=== PATIENT | male | born 1950 | race Caucasian/White ===

== ENCOUNTER 2019-01-13 12:09 | Outpatient (CLI) | payer MEDICARE ==
--- NOTE | 2019-01-13 13:43 | RAD ---
EXAM: Chest Two Views 01/13/2019 1:40 PM HISTORY: Preoperative chest radiograph COMPARISON: None. FINDINGS: Heart: There is mild cardiomegaly Pulmonary vessels: Normal. Costophrenic angles: Clear. Lungs: No confluent pneumonia, overt edema, pleural effusion, or other acute process. Pneumothorax: None. Osseous structures:No acute osseous abnormality is evident. There is multilevel thoracic spondylosis. Additional findings: None. IMPRESSION: No acute cardiopulmonary abnormality. Mild cardiomegaly without evidence of cardiac decompensation.
[2019-01-13 14:05] LABS: #Eosinphils 0.3 thou/uL (0.0-0.7); #Lymphocytes 1.9 thou/uL (1.20-3.40); #Monocytes 0.7 thou/uL (0.11-0.59); #Neutrophils 4.3 thou/uL (1.40-6.50); %Basophils 0.6 % (0.0-1.0); %Lymphocytes 26.3 % (21.0-51.0); %Monocytes 9.6 % (0.0-10.0); %Neutrophils 59.5 % (42.0-75.0); Hemoglobin 15.4 g/dL (14.0-18.0); Mean Corpuscular HGB CONC 33.5 g/dL (32.0-36.0); Mean Corpuscular Hemoglobin 31.6 pg (27.0-31.0); Mean Corpuscular Volume 94.4 fL (78.0-98.0); Mean Platelet Volume 7.9 fL (7.4-10.4); Platelet Count 191 thou/uL (130-400); RBC Distribution Width 11.7 % (11.5-14.5); Red Blood Cell (RBC) Count 4.88 mill/uL (4.70-6.10); White Blood Cell (WBC) Count 7.2 thou/uL (4.8-10.8)
[2019-01-13 14:24] LABS: Anion Gap 13 mmol/L (10-20); BUN (Urea Nitrogen) 18 mg/dL (8.4-25.7); Calc. Creatinine Clearance 0 mL/min (70-130); Calcium 9.9 mg/dL (7.8-10.44); Carbon Dioxide 26 mmol/L (23-31); Chloride 103 mmol/L (98-107); Estimated GFR-MDRD 80; Glucose 108 mg/dL (80-115); Potassium 4.1 mmol/L (3.5-5.1); Sodium 138 mmol/L (136-145)
== END 2019-01-13 12:10 | disposition home or self-care (01) ==
LOC: LABBT 12:09
PROVIDERS: ATTEND Thoracic Surgery (Cardiothoracic Vascular Surgery)
DX: Z01.818 Encounter for other preprocedural examination (principal); I73.9 Peripheral vascular disease, unspecified; I51.7 Cardiomegaly
CPT/HCPCS: 71046; 80048; 85025; 93005; 93010

== ENCOUNTER 2019-01-13 13:30 | Inpatient (IN) | payer MEDICARE ==
[2019-01-13 12:30] VITALS: BMI 32.3
[2019-01-14] MEDS ORDERED: Fentanyl 250 MCG/5 ML VIAL ONE (06:29)
[2019-01-14] MEDS ORDERED: Midazolam HCl 2 mg/2 ml Vial ONE (06:29)
[2019-01-14] MEDS ORDERED: Heparin 5,000 UNITS/ML VIAL ONE (06:33)
[2019-01-14] MEDS ORDERED: Bupivacaine HCl 0.5%/Epinephrine 1:200,000/PF 30 ml Vial ONE (06:33)
[2019-01-14] MEDS ORDERED: Protamine Sulfate 50 MG/5 ML VIAL ONE (06:33)
[2019-01-14] MEDS ORDERED: Ondansetron HCl/PF 4 MG/2 ML Vial IVP PRN ×2 (06:50→10:40)
[2019-01-14] MEDS ORDERED: Promethazine HCl 25 MG/ML VIAL SLOW IVP PRN ×2 (06:50→10:40)
[2019-01-14] MEDS ORDERED: Promethazine HCl 25 MG/ML VIAL IM PRN ×3 (06:50→13:17)
[2019-01-14] MEDS ORDERED: PHENYLEPHRINE-NS 100 MCG/ML 10 ML SYRINGE ONE ×2 (09:15→16:40)
[2019-01-14] MEDS ORDERED: Phenylephrine HCL 10 MG/ML VIAL ONE (09:18)
[2019-01-14] MEDS ORDERED: Meperidine HCl/PF 25 MG/ML VIAL SLOW IVP PRN (10:40)
[2019-01-14] MEDS ORDERED: HYDROmorphone 2 MG/ML VIAL SLOW IVP PRN (10:40)
[2019-01-14] MEDS ORDERED: Morphine Sulfate 2 MG/ML SYRINGE SLOW IVP PRN (10:40)
[2019-01-14] MEDS ORDERED: PACU-Morphine 4MG/ML VIAL SLOW IVP PRN (10:40)
[2019-01-14] MEDS ORDERED: HYDROcodone/Acetaminophen 5/325 mg Tablet PO PRN ×2 (13:17)
[2019-01-14] MEDS ORDERED: Acetaminophen 325 MG TAB PO PRN (13:17)
[2019-01-14] MEDS ORDERED: Promethazine HCl 25 MG/ML VIAL PR PRN (13:17)
[2019-01-14] MEDS ORDERED: Ondansetron PF 4 MG/2 ML Vial IVP PRN (13:17)
[2019-01-14] MEDS ORDERED: Fentanyl 100 MCG/2 ML VIAL SLOW IVP PRN ×2 (13:17)
[2019-01-14] MEDS ORDERED: CEFAZOLIN 2 GM in Premix Bag 1 BAG IVPB SCH (14:00)
[2019-01-14] MEDS: D5 1/2 NS w/20 mEq KCL 1,000 ML IV SCH (15:01)
[2019-01-14] MEDS ORDERED: Ondansetron PF 4 MG/2 ML Vial ONE (16:40)
[2019-01-14] MEDS ORDERED: Glycopyrrolate 0.2 MG/ML 5 ML SYRINGE ONE (16:40)
[2019-01-14] MEDS ORDERED: Heparin 10,000 UNITS/ 10 ML VIAL ONE (16:40)
[2019-01-14] MEDS ORDERED: Rocuronium Bromide 10 MG/ML (10ML VIAL) ONE (16:40)
[2019-01-14] MEDS ORDERED: Lidocaine 1% PF 5 ML VIAL ONE (16:40)
[2019-01-14] MEDS ORDERED: Vecuronium 10 MG VIAL ONE (16:40)
[2019-01-14] MEDS ORDERED: ePHEDrine 50 MG/ML VIAL ONE (16:40)
[2019-01-14] MEDS ORDERED: PROPOFOL 200 MG/20 ML VIAL ONE (16:40)
[2019-01-14] MEDS ORDERED: Dexamethasone 20 MG/5 ML VIAL ONE (16:40)
--- NOTE | 2019-01-14 16:45 | OP ---
DATE OF PROCEDURE: 01/14/2019 PREOPERATIVE DIAGNOSIS: Peripheral vascular disease with right leg severe lifestyle-limiting claudication. POSTOPERATIVE DIAGNOSIS: Peripheral vascular disease with right leg severe lifestyle-limiting claudication. PROCEDURE PERFORMED: Right femoral to tibioperoneal trunk bypass utilizing reverse saphenous vein taken endoscopically from the right leg. ANESTHESIA: General endotracheal. ESTIMATED BLOOD LOSS: 150. DRAINS: None. SPECIMENS: None. DESCRIPTION OF PROCEDURE: After consent was obtained, the patient was brought to the operating room and placed in supine position on the operating room table. Appropriate central line was placed, and general endotracheal anesthesia was induced. Right leg was prepped and draped in the usual sterile fashion. The greater saphenous vein had been interrogated preoperatively and marked. A skin incision was made just proximal to the knee over the greater saphenous vein. Saphenous vein was then harvested endoscopically from groin down to the lower calf. A skin incision was made over the common femoral artery. The saphenous vein was located and divided at the fossa ovalis. Saphenous vein was then retracted from the thigh into the knee incision and clamped with a bulldog clamp. The common femoral, superficial femoral, and profunda femoris arteries were carefully dissected free. Common femoral had circumferential calcium as far up under the inguinal ligament as I could feel. There was no area to clamp. There was an area on the superficial femoral just distal to the profunda that was soft and we elected to use this as our inflow site. There was a good palpable pulse at this area. A skin incision was then made over the below-knee popliteal artery as that was our plan for outflow. The gastroc fascia was then opened and the popliteal artery exposed. The popliteal artery was heavily calcified. This was followed distally down past the anterior tibial artery takeoff. The tibioperoneal trunk had a short area of soft pliable artery and we elected to use this as our outflow. The distal greater saphenous vein was then divided and the vein was removed. Vein branches were tied. The vein was of good quality and we elected to reverse it to use for bypass. Vein was marked. Vein was then passed through the previous tunnel. The patient was given 7500 units total of heparin. The superficial femoral at the bifurcation and distal superficial femoral arteries were then clamped. Incision was made on the superficial femoral artery and a running 5-0 Prolene anastomosis created between the saphenous vein and the superficial femoral artery. On release of the clamps, there was excellent flow in the vein graft that was pulsatile. The distal anastomosis was then created between saphenous vein and tibioperoneal trunk with running 6-0 Prolene suture. On release of the clamps, the flow was palpable through the graft. There was good triphasic Doppler signal, which abated with clamping the graft. A 50 mg of protamine was given. The wounds were irrigated and closed with a deep layer of 2-0 Vicryl and skin clips. At completion, there was a good Doppler signal in the posterior tibial artery. The patient was awakened, extubated, and transferred to the recovery room in stable condition. Needle, sponge, and instrument counts were all reported as correct at the end of the procedure. Job ID: [id number]
[2019-01-14] MEDS: Atorvastatin Calcium 40 MG TAB PO SCH (20:04)
[2019-01-15] MEDS: CEFAZOLIN 2 GM in Premix Bag 1 BAG IVPB SCH ×2 (00:06→09:58)
[2019-01-15] MEDS: D5 1/2 NS w/20 mEq KCL 1,000 ML IV SCH (00:07)
[2019-01-15] MEDS ORDERED: Amlodipine 10 MG TAB PO SCH (09:00)
[2019-01-15] MEDS ORDERED: Citalopram 20 MG TAB PO SCH (09:00)
[2019-01-15] MEDS ORDERED: Aspirin 325 mg Enteric Coated Tablet PO SCH ×2 (09:00)
[2019-01-15] MEDS ORDERED: Non-Formulary Item 1 EACH (Hydrochlorothiazide [Hydrochlorothiazide] 1 TAB) PO SCH (09:00)
[2019-01-15] MEDS ORDERED: Non-Formulary Item 1 EACH (Multivitamin [Multivitamins] 1 TAB) PO SCH (09:00)
[2019-01-15] MEDS ORDERED: Ezetimibe 10 MG TAB PO SCH (09:00)
[2019-01-15] MEDS ORDERED: FOLIC ACID 400 MCG PO SCH (09:00)
[2019-01-15] MEDS ORDERED: Clopidogrel Bisulfate 75 MG TAB PO SCH (09:00)
[2019-01-15] MEDS ORDERED: Lisinopril 20 MG TAB PO SCH (09:00)
[2019-01-15] MEDS ORDERED: ATORVASTATIN CALCIUM PO SCH (09:00)
[2019-01-15] MEDS: Atenolol 50 MG TAB PO SCH (09:44)
[2019-01-15] MEDS: Ezetimibe 10 MG TAB PO SCH (09:52)
[2019-01-15] MEDS: Citalopram 20 MG TAB PO SCH (09:52)
[2019-01-15] MEDS: Multivit, Therapeutic 1 TAB PO SCH (09:52)
[2019-01-15] MEDS: Aspirin 81 mg Enteric Coated Tablet PO SCH (09:53)
[2019-01-15] MEDS: Clopidogrel Bisulfate 75 MG TAB PO SCH (09:53)
[2019-01-15] MEDS: Folic Acid 1 MG TAB PO SCH (09:53)
[2019-01-15] MEDS: Amlodipine 10 MG TAB PO SCH (09:53)
[2019-01-15] MEDS: Lisinopril 20 MG TAB PO SCH (15:05)
[2019-01-15] MEDS: Hydrochlorothiazide 25 MG TAB PO SCH (15:05)
[2019-01-15] MEDS: Atorvastatin Calcium 40 MG TAB PO SCH (20:44)
[2019-01-16] MEDS: D5 1/2 NS w/20 mEq KCL 1,000 ML IV SCH ×2 (03:55→05:54)
[2019-01-16] MEDS: Ezetimibe 10 MG TAB PO SCH (08:56)
[2019-01-16] MEDS: Citalopram 20 MG TAB PO SCH (08:57)
[2019-01-16] MEDS: Clopidogrel Bisulfate 75 MG TAB PO SCH (08:57)
[2019-01-16] MEDS: Hydrochlorothiazide 25 MG TAB PO SCH (08:58)
[2019-01-16] MEDS: Multivit, Therapeutic 1 TAB PO SCH (08:59)
[2019-01-16] MEDS: Folic Acid 1 MG TAB PO SCH (09:00)
[2019-01-16] MEDS: Aspirin 81 mg Enteric Coated Tablet PO SCH (09:00)
[2019-01-16] MEDS: Atenolol 50 MG TAB PO SCH (09:01)
[2019-01-16] MEDS: Amlodipine 10 MG TAB PO SCH (09:02)
[2019-01-16] MEDS: Lisinopril 20 MG TAB PO SCH (09:02)
[2019-01-16 11:53] VITALS: BP 117/71; TEMP 98.3
--- NOTE | 2019-01-17 01:47 | DIS ---
DATE OF ADMISSION: 01/14/2019 DATE OF DISCHARGE: 01/16/2019 DIAGNOSIS: Peripheral vascular disease. PROCEDURE: Right femoral to tibioperoneal trunk bypass utilizing reversed greater saphenous vein. DESCRIPTION OF HOSPITAL STAY: Mr. Harry is a 68-year-old gentleman, who underwent the above procedure for severe lifestyle limiting claudication. He has done well postoperatively. His claudication has resolved. He is ambulatory, tolerating regular diet, having good bowel and bladder function. Incision was clean and dry without evidence of infection. DISCHARGE INSTRUCTIONS: Included for him to walk as much as possible. He needs to elevate his leg at home between walking cycles. He is to shower daily, but no baths, hot tub, or swimming pool submersion. DISCHARGE MEDICATIONS: Unchanged. FOLLOWUP: Follow up with me in 2 weeks. Job ID: [id number]
== END 2019-01-16 13:10 | disposition home or self-care (01) | DRG 254 ==
LOC: SURG A 01-14 05:32 → SURG B 01-14 12:01
PROVIDERS: ADMIT Thoracic Surgery (Cardiothoracic Vascular Surgery); ATTEND Thoracic Surgery (Cardiothoracic Vascular Surgery)
PROC: 041K09L Bypass Right Femoral Artery to Popliteal Artery with Autologous Venous Tissue, Open Approach (ICD-10-PCS; principal; 2019-01-14)
PROC: 06BP4ZZ Excision of Right Saphenous Vein, Percutaneous Endoscopic Approach (ICD-10-PCS; 2019-01-14)
DX: I73.9 Peripheral vascular disease, unspecified (principal)
CPT/HCPCS: 71046; 80048; 85025; 86850; 86900; 86901; 93005; 93010; J0670; J0690; J1100; J1642; J1644; J2001; J2250; J2370; J2405; J2704; J2720; J3010; J3490

== ENCOUNTER 2019-10-27 08:36 | Outpatient (CLI) | payer MEDICARE ==
--- NOTE | 2019-10-27 10:04 | RAD ---
Chest 2 views HISTORY: Preop. COMPARISON: 01/13/2019. FINDINGS: Cardiac silhouette and pulmonary vasculature are unremarkable. Mediastinum is midline. No c onfluent airspace consolidation, pneumothorax, or pleural fluid. Degenerative changes of the thoracic spine are apparent on the lateral view. IMPRESSION: No active cardiopulmonary abnormalities are demonstrated.
[2019-10-27 10:17] LABS: Hemoglobin 15.6 g/dL (14.0-18.0); Mean Corpuscular HGB CONC 34.1 g/dL (32.0-36.0); Mean Corpuscular Hemoglobin 32.3 pg (27.0-31.0); Mean Corpuscular Volume 94.6 fL (78.0-98.0); Mean Platelet Volume 7.6 fL (7.4-10.4); Platelet Count 182 thou/uL (130-400); RBC Distribution Width 11.7 % (11.5-14.5); Red Blood Cell (RBC) Count 4.82 mill/uL (4.70-6.10); White Blood Cell (WBC) Count 7.1 thou/uL (4.8-10.8)
[2019-10-27 10:27] LABS: Anion Gap 13 mmol/L (10-20); BUN (Urea Nitrogen) 18 mg/dL (8.4-25.7); Calc. Creatinine Clearance 0 mL/min (70-130); Calcium 9.2 mg/dL (7.8-10.44); Carbon Dioxide 25 mmol/L (23-31); Chloride 106 mmol/L (98-107); Estimated GFR-MDRD 90; Glucose 122 mg/dL (83-110); Potassium 3.8 mmol/L (3.5-5.1); Sodium 140 mmol/L (136-145)
--- NOTE | 2019-10-27 15:21 | EKG ---
Test Reason : Blood Pressure : / mmHG Vent. Rate : 052 BPM Atrial Rate : 052 BPM P-R Int : 170 ms QRS Dur : 108 ms QT Int : 466 ms P-R-T Axes : 019 -26 -10 degrees QTc Int : 433 ms Sinus bradycardia Nonspecific T wave abnormality Cannot exclude Anterior infarct , age undetermined Voltage criteria for left ventricular hypertrophy Abnormal ECG Confirmed by JUANCARLOS HO ([id number]) on 10/27/2019 3:21:22 PM Referred By: PEYTON Confirmed By:JUANCARLOS HO
== END 2019-10-27 08:37 | disposition home or self-care (01) ==
LOC: LABBT 08:36
PROVIDERS: ATTEND Thoracic Surgery (Cardiothoracic Vascular Surgery)
DX: Z01.818 Encounter for other preprocedural examination (principal); I73.9 Peripheral vascular disease, unspecified
CPT/HCPCS: 71046; 80048; 85027; 93005; 93010

== ENCOUNTER 2019-10-27 10:15 | Inpatient (IN) | payer MEDICARE ==
[2019-10-29] MEDS ORDERED: Heparin 5,000 UNITS/ML VIAL ONE (06:31)
[2019-10-29] MEDS ORDERED: Protamine Sulfate 50 MG/5 ML VIAL ONE (06:31)
[2019-10-29] MEDS ORDERED: Fentanyl 250 MCG/5 ML VIAL ONE (06:57)
[2019-10-29] MEDS ORDERED: Midazolam HCl 2 mg/2 ml Vial ONE (07:14)
[2019-10-29] MEDS ORDERED: Sodium Chloride For Inhalation 0.9% 3 ML NEB ONE (10:43)
[2019-10-29] MEDS ORDERED: Ondansetron PF 4 MG/2 ML Vial IVP PRN (10:53)
[2019-10-29] MEDS ORDERED: Fentanyl 100 MCG/2 ML VIAL SLOW IVP PRN ×2 (10:53)
[2019-10-29] MEDS ORDERED: Promethazine HCl 25 MG/ML VIAL PR PRN (10:53)
[2019-10-29] MEDS ORDERED: Promethazine HCl 25 MG/ML VIAL IM PRN ×2 (10:53→13:37)
[2019-10-29] MEDS ORDERED: Acetaminophen 325 MG TAB PO PRN (10:53)
[2019-10-29] MEDS ORDERED: Vecuronium 10 MG VIAL ONE (11:38)
[2019-10-29] MEDS ORDERED: PHENYLEPHRINE-NS 100 MCG/ML 10 ML SYRINGE ONE (11:38)
[2019-10-29] MEDS ORDERED: Glycopyrrolate 0.2 MG/ML 5 ML SYRINGE ONE (11:38)
[2019-10-29] MEDS ORDERED: Ondansetron PF 4 MG/2 ML Vial ONE (11:38)
[2019-10-29] MEDS ORDERED: PROPOFOL 200 MG/20 ML VIAL ONE (11:38)
[2019-10-29] MEDS ORDERED: Lidocaine 1% PF 5 ML VIAL ONE (11:38)
[2019-10-29] MEDS ORDERED: EPHEDRINE 25 MG/5 ML SYRINGE ONE (11:38)
[2019-10-29] MEDS ORDERED: Fentanyl 100 MCG/2 ML VIAL ONE (11:53)
--- NOTE | 2019-10-29 12:03 | OP ---
DATE OF PROCEDURE: 10/29/2019 PREOPERATIVE DIAGNOSIS: Peripheral vascular disease. POSTOPERATIVE DIAGNOSIS: Peripheral vascular disease. PROCEDURES PERFORMED: 1. Left iliofemoral endarterectomy with patch angioplasty. 2. Left external iliac artery angiogram. ANESTHESIA: General endotracheal. TOTAL CONTRAST: 20. TOTAL FLUORO TIME: 48 seconds. ESTIMATED BLOOD LOSS: 200. DESCRIPTION OF PROCEDURE: After consent was obtained, the patient was brought to the operating room, placed supine on the operative table. Appropriate central line and monitors were placed and general endotracheal anesthesia was induced. The left groin was prepped and draped in usual sterile fashion. A skin incision was made over the common femoral artery. Common femoral external iliac under the inguinal ligament, superficial femoral, and profunda femoris arteries were carefully exposed. There was a soft spot anteriorly in the common femoral artery. This was accessed with the access needle and a [employer] guidewire passed to the abdominal aorta. A 6-Tamazight sheath was placed. A hand-injected arteriogram was then performed illuminating the aorta and iliac vasculature on the left. There was no intraluminal severe encroachment. In the common iliac artery, there was a large piece of calcium, but it was not occlusive. We elected to not treat any of these areas. The patient was given 7500 units of heparin. After 3 minutes, the external iliac, superficial femoral, and profunda femoris arteries were clamped. The sheath was removed. The sheath access point was used to extend an incision on the anterior wall of the common femoral artery up onto the external iliac artery. This was also brought down onto the orifice of the superficial femoral artery. The endarterectomy was performed with [employer] hemostats. The plaque was removed from the orifice of the profunda femoris artery. Medial fibers were debrided. Artery was flushed with heparinized saline. The bovine pericardial patch was sewn in place with running 5-0 Prolene suture. Prior to completion of the patch suture line, arteries were back bled and re-clamped. Suture line was completed and tied. Antegrade flows reestablished down the profunda and then, the superficial femoral artery. The protamine was administered. Hemostasis was ensured. Wounds were copiously irrigated. Closed in layers. Dermabond applied to skin. The patient was awakened and transferred to the recovery room in stable condition. Needle, sponge, and instrument counts were reported correct at the end of the procedure. Job ID: [id number]
[2019-10-29] MEDS ORDERED: Ondansetron HCl/PF 4 MG/2 ML Vial IVP PRN (13:37)
[2019-10-29] MEDS ORDERED: Promethazine HCl 25 MG/ML VIAL SLOW IVP PRN (13:37)
[2019-10-29] MEDS ORDERED: Sodium Chloride 0.9% 0 ML ONE (14:10)
[2019-10-29] MEDS: traMADol HCl 50 MG TAB PO PRN (16:34)
[2019-10-29] MEDS: D5 1/2 NS w/20 mEq KCL 1,000 ML IV SCH ×2 (16:36→23:08)
[2019-10-29 16:42] VITALS: BMI 31.8
[2019-10-29] MEDS: CEFAZOLIN 2 GM in Premix Bag 1 BAG IVPB SCH ×2 (17:22→23:33)
[2019-10-29] MEDS ORDERED: Atorvastatin Calcium 40 MG TAB PO SCH (21:00)
[2019-10-30] MEDS: CEFAZOLIN 2 GM in Premix Bag 1 BAG IVPB SCH (05:44)
[2019-10-30] MEDS ORDERED: Amlodipine 10 MG TAB PO SCH (09:00)
[2019-10-30] MEDS ORDERED: Aspirin 81 mg Enteric Coated Tablet PO SCH (09:00)
[2019-10-30] MEDS ORDERED: Citalopram 20 MG TAB PO SCH (09:00)
[2019-10-30] MEDS ORDERED: Atenolol 50 MG TAB PO SCH (09:00)
[2019-10-30] MEDS ORDERED: Clopidogrel Bisulfate 75 MG TAB PO SCH (09:00)
[2019-10-30] MEDS ORDERED: Ezetimibe 10 MG TAB PO SCH (09:00)
[2019-10-30] MEDS ORDERED: Losartan 25 MG TAB PO SCH (09:00)
[2019-10-30] MEDS ORDERED: Multivit, Therapeutic 1 TAB PO SCH (09:00)
[2019-10-30] MEDS ORDERED: Hydrochlorothiazide 25 MG TAB PO SCH (09:00)
[2019-10-30] MEDS ORDERED: Folic Acid 1 MG TAB PO SCH (09:00)
[2019-10-30] MEDS: traMADol HCl 50 MG TAB PO PRN (09:14)
--- NOTE | 2019-10-30 10:34 | PDOC.BPN ---
- Brief Progress Note Mr. Harry is post-op day 1 after left femoral endarterectomy. He is alert and responsive to questioning. Pain is well-controlled until the patient extends/ abducts left femoroacetabular joint at which pain is 8/10. He denies paresthesia or motor weakness in left leg and foot, SOB and fever. Vitals: 55 bpm, 105/56 I/O: IV and oral input = 1680 mL, urine output = 1600 mL and pale yellow PE: Lungs - lungs clear to auscultation bilaterally, Heart - RRR no murmurs, rubs, Wound - well-approximated, no erythema or discharge Assessment/Plan: Patient is progressing well and pain is adequately controlled. Continue OOB and ambulation. D/c after PT eval.
[2019-10-30 11:31] VITALS: TEMP 98.8
[2019-10-30 13:15] VITALS: BP 104/56
--- NOTE | 2019-10-30 15:14 | DIS ---
DATE OF ADMISSION: 10/29/2019 DATE OF DISCHARGE: 10/30/2019 DIAGNOSIS: Peripheral vascular disease. PROCEDURE: femoral endarterectomy with patch angioplasty. DESCRIPTION OF HOSPITAL STAY: Mr. Harry was brought in for elective femoral endarterectomy. He has done well. He is currently ambulatory, tolerating regular diet, having good bowel and bladder function. Incision is clean and dry. There is no drainage. DISCHARGE INSTRUCTIONS: Include for him to shower daily, but no bathtub, hot tub or swimming pool. He will be followed up in 2 weeks. DISCHARGE MEDICATIONS: Unchanged. Job ID: [id number]
== END 2019-10-30 13:15 | disposition home or self-care (01) | DRG 272 ==
LOC: SURG A 10-29 05:25 → 2NO 10-29 16:01
PROVIDERS: ADMIT Thoracic Surgery (Cardiothoracic Vascular Surgery); ATTEND Thoracic Surgery (Cardiothoracic Vascular Surgery)
PROC: 04CJ0ZZ Extirpation of Matter from Left External Iliac Artery, Open Approach (ICD-10-PCS; principal; 2019-10-29)
PROC: 04CL0ZZ Extirpation of Matter from Left Femoral Artery, Open Approach (ICD-10-PCS; 2019-10-29)
PROC: 04UJ0KZ Supplement Left External Iliac Artery with Nonautologous Tissue Substitute, Open Approach (ICD-10-PCS; 2019-10-29)
PROC: 04UL0KZ Supplement Left Femoral Artery with Nonautologous Tissue Substitute, Open Approach (ICD-10-PCS; 2019-10-29)
DX: I70.202 Unspecified atherosclerosis of native arteries of extremities, left leg (principal); I10 Essential (primary) hypertension; E78.5 Hyperlipidemia, unspecified; F32.9 Major depressive disorder, single episode, unspecified; I25.10 Atherosclerotic heart disease of native coronary artery without angina pectoris; Z95.5 Presence of coronary angioplasty implant and graft; Z79.01 Long term (current) use of anticoagulants; Z86.718 Personal history of other venous thrombosis and embolism; Z87.891 Personal history of nicotine dependence
CPT/HCPCS: 36416; 71046; 76000; 80048; 85027; 93005; J0690; J1642; J1644; J2001; J2250; J2405; J2704; J2720; J3010; J3490; J7620

== ENCOUNTER 2022-12-07 10:38 | Outpatient (CLI) | payer MEDICARE ==
[2022-12-07] MEDS ORDERED: Iopamidol 370 76% 100 ML VIAL ONE (14:15)
== END 2022-12-07 10:39 | disposition home or self-care (01) ==
LOC: CT 10:38
PROVIDERS: ATTEND Thoracic Surgery (Cardiothoracic Vascular Surgery)
DX: I70.219 Atherosclerosis of native arteries of extremities with intermittent claudication, unspecified extremity (principal); N20.1 Calculus of ureter
CPT/HCPCS: 75635; 82565; Q9967

== ENCOUNTER 2023-01-11 08:53 | Outpatient (CLI) | payer MEDICARE ==
[2023-01-11] MEDS ORDERED: Iopamidol 370 76% 100 ML VIAL ONE (10:51)
== END 2023-01-11 08:54 | disposition home or self-care (01) ==
LOC: CT 08:53
PROVIDERS: ATTEND Urology
DX: N28.89 Other specified disorders of kidney and ureter (principal); C80.1 Malignant (primary) neoplasm, unspecified; R91.1 Solitary pulmonary nodule; R91.8 Other nonspecific abnormal finding of lung field; I70.90 Unspecified atherosclerosis
CPT/HCPCS: 71260; 78306; A9503; Q9967

== ENCOUNTER 2023-03-15 11:17 | Outpatient (CLI) | payer MEDICARE ==
[2023-03-15 13:33] LABS: PTT 27.8 sec (22.0-33.0); Prothrombin Time 10.9 sec (9.5-12.1)
[2023-03-15 13:35] LABS: Anion Gap 14 mmol/L (10-20); BUN (Urea Nitrogen) 16 mg/dL (8.4-25.7); Calc. Creatinine Clearance 0 mL/min (70-130); Calcium 9.2 mg/dL (7.8-10.44); Carbon Dioxide 25 mmol/L (23-31); Chloride 107 mmol/L (98-107); Estimated GFR 84; Glucose 111 mg/dL (83-110); Potassium 3.7 mmol/L (3.5-5.1); Sodium 142 mmol/L (136-145)
[2023-03-15 13:37] LABS: Hemoglobin 13.6 g/dL (13.5-17.5); Mean Corpuscular Hemoglobin 30.9 pg (27.0-33.0); Mean Corpuscular Volume 93.6 fl (81.2-95.1); Mean Platelet Volume 10.6 fl (7.4-10.4); Platelet Count 192 10x3/uL (150-450); White Blood Cell (WBC) Count 6.4 10x3/uL (3.5-10.5)
[2023-03-15 14:45] LABS: Bilirubin Neg (Negative); Blood, Urine Negative (Negative); Clarity Clear (Clear); Glucose, Urine (Dipstick) Normal (Negative); Ketone, Urine Negative (Negative); Leukocyte Negative (Negative); Nitrite Negative (Negative); Protein, Urine (Dipstick) 15 mg/dl (Neg-Trace); Specific Gravity, Urine 1.025 (1.005-1.030); Urobilinogen Normal mg/dL (Less than 2)
[2023-03-15 15:31] LABS: RBC/HPF 0-3 HPF (0-3); WBC/HPF 0-3 HPF (0-3)
[2023-03-15 15:32] LABS: Bacteria/HPF 1+ HPF (None Seen); Squamous Epithelial 0-3 HPF (0-3)
== END 2023-03-15 11:18 | disposition home or self-care (01) ==
LOC: LABBT 11:17
PROVIDERS: ATTEND Urology
DX: Z01.818 Encounter for other preprocedural examination (principal); N28.89 Other specified disorders of kidney and ureter; I25.119 Atherosclerotic heart disease of native coronary artery with unspecified angina pectoris; F32.9 Major depressive disorder, single episode, unspecified; I73.9 Peripheral vascular disease, unspecified; E11.65 Type 2 diabetes mellitus with hyperglycemia; N20.0 Calculus of kidney; Z86.718 Personal history of other venous thrombosis and embolism; Z98.890 Other specified postprocedural states
CPT/HCPCS: 71046; 80048; 81001; 85027; 85610; 85730; 87086; 93005; 93010

== ENCOUNTER 2023-03-15 13:00 | Inpatient (IN) | payer MEDICARE ==
[2023-03-15 12:43] VITALS: BMI 27.7
[2023-03-28] MEDS ORDERED: Dexmedetomidine 200 MCG/2 ML VIAL ONE (06:46)
[2023-03-28] MEDS ORDERED: Famotidine/PF 20 mg/2ml Vial ONE (06:46)
[2023-03-28] MEDS ORDERED: Fentanyl 250 MCG/5 ML VIAL ONE (06:46)
[2023-03-28] MEDS ORDERED: Phenylephrine 10 MG/ML VIAL ONE (06:47)
[2023-03-28] MEDS ORDERED: Vasopressin 20 UNITS/ML VIAL ONE (06:47)
[2023-03-28] MEDS ORDERED: Bupivacaine HCl 0.5%/Epinephrine 1:200,000/PF 30 ml Vial ONE (06:58)
[2023-03-28] MEDS ORDERED: Indocyanine Green 25 MG/10 ML VIAL ONE (06:58)
[2023-03-28] MEDS ORDERED: fentaNYL 50 mcg/mL 1 mL Vial ONE ×3 (07:05→12:52)
[2023-03-28] MEDS ORDERED: Midazolam HCl 2 mg/2 ml Vial ONE (07:05)
[2023-03-28] MEDS ORDERED: Bupivacaine PF 0.5% 30 ML VIAL ONE (07:05)
[2023-03-28] MEDS ORDERED: Lidocaine 1% PF 5 ML VIAL ONE (07:19)
[2023-03-28] MEDS ORDERED: Rocuronium Bromide 10 MG/ML (10ML VIAL) ONE (07:19)
[2023-03-28] MEDS ORDERED: PROPOFOL 200 MG/20 ML VIAL ONE (07:19)
[2023-03-28] MEDS ORDERED: Calcium Chloride 1 GM/10 ML Abboject SYRINGE ONE (07:19)
[2023-03-28] MEDS ORDERED: Dexamethasone 20 MG/5 ML VIAL ONE (07:19)
[2023-03-28] MEDS ORDERED: Ondansetron PF 4 MG/2 ML Vial ONE (07:19)
[2023-03-28] MEDS ORDERED: Ropivacaine 0.5% HCl/PF (150 MG/30 ML VIAL) ONE (07:19)
[2023-03-28] MEDS ORDERED: Glycopyrrolate 0.2 MG/ML 5 ML SYRINGE ONE (07:19)
[2023-03-28] MEDS ORDERED: PHENYLEPHRINE-NS 100 MCG/ML 10 ML SYRINGE ONE (07:19)
[2023-03-28] MEDS ORDERED: ePHEDrine Sulfate 50 MG/10 ML VIAL ONE (07:19)
[2023-03-28] MEDS ORDERED: Lidocaine 1% MPF 2 ML VIAL ONE (07:27)
[2023-03-28] MEDS ORDERED: CEFAZOLIN 2 GM VIAL ONE (07:46)
[2023-03-28] MEDS ORDERED: Sodium Chloride 0.9% 100 ML ONE (07:46)
[2023-03-28] MEDS ORDERED: SUGAMMADEX SODIUM 200 MG/2 ML VIAL ONE (07:50)
[2023-03-28] MEDS ORDERED: Meperidine HCl/PF 25 MG/ML VIAL SLOW IVP PRN ×2 (09:14→12:44)
[2023-03-28] MEDS ORDERED: Promethazine HCl 25 MG/ML VIAL IM PRN ×2 (09:14→12:44)
[2023-03-28] MEDS ORDERED: HYDROmorphone 2 MG/ML VIAL SLOW IVP PRN ×2 (09:14→12:44)
[2023-03-28] MEDS ORDERED: Ondansetron HCl/PF 4 MG/2 ML Vial IVP PRN ×2 (09:14→12:44)
[2023-03-28] MEDS ORDERED: Lidocaine 1% (PF) 30 ML VIAL ONE (11:49)
[2023-03-28] MEDS ORDERED: Bisacodyl 10 MG SUPP PR PRN (13:12)
[2023-03-28] MEDS ORDERED: hydrALAZINE 20 MG/ML VIAL SLOW IVP PRN (13:12)
[2023-03-28] MEDS ORDERED: Mag-Al 1200 mg/1200 mg/30 ML UDCUP PO PRN (13:12)
[2023-03-28] MEDS ORDERED: Morphine 2 MG/ML VIAL SLOW IVP PRN (13:12)
[2023-03-28] MEDS ORDERED: diphenhydrAMINE 50 MG/ML VIAL IVP PRN (13:12)
[2023-03-28] MEDS ORDERED: Acetaminophen 500 MG TAB PO PRN (13:12)
[2023-03-28] MEDS ORDERED: Ondansetron PF 4 MG/2 ML Vial IVP PRN (13:12)
[2023-03-28 13:31] LABS: Hemoglobin 13.2 g/dL (14.0-18.0); Mean Corpuscular HGB CONC 33.2 g/dL (32.0-36.0); Mean Corpuscular Volume 96.4 fl (78.0-98.0); Mean Platelet Volume 10.3 fL (7.4-10.4); Platelet Count 144 10x3/uL (130-400); RBC Distribution Width 12.9 % (11.5-14.5); Red Blood Cell (RBC) Count 4.13 mill/uL (4.70-6.10); White Blood Cell (WBC) Count 10.5 10x3/uL (4.8-10.8)
[2023-03-28 14:00] LABS: Anion Gap 15 mmol/L (10-20); BUN (Urea Nitrogen) 20 mg/dL (8.4-25.7); Calc. Creatinine Clearance 69 mL/min (70-130); Calcium 9.5 mg/dL (7.8-10.44); Carbon Dioxide 22 mmol/L (23-31); Chloride 107 mmol/L (98-107); Estimated GFR 60; Glucose 166 mg/dL (83-110); Potassium 3.8 mmol/L (3.5-5.1); Sodium 140 mmol/L (136-145)
[2023-03-28] MEDS: Morphine 4 MG/ML VIAL SLOW IVP PRN ×2 (14:55→20:18)
[2023-03-28] MEDS: Sodium Chloride 0.9% 1,000 ML IV SCH (14:56)
[2023-03-28] MEDS: CEFAZOLIN 1 GM in Sodium Chloride 0.9% 100 ML IVPB SCH (20:10)
[2023-03-28] MEDS: Atorvastatin Calcium 40 MG TAB PO SCH (20:12)
[2023-03-28] MEDS: Docusate 100 MG CAP PO SCH (20:12)
[2023-03-28] MEDS: Ezetimibe 10 MG TAB PO SCH (20:12)
[2023-03-28] MEDS: HYDROcodone/Acetaminophen 5/325 mg Tablet PO PRN (20:17)
[2023-03-29] MEDS: Sodium Chloride 0.9% 1,000 ML IV SCH ×3 (03:59→20:04)
[2023-03-29] MEDS: CEFAZOLIN 1 GM in Sodium Chloride 0.9% 100 ML IVPB SCH ×2 (03:59→12:22)
[2023-03-29 05:54] LABS: #Monocytes 0.9 thou/uL (0.11-0.59); #Neutrophils 9.5 thou/uL (1.40-6.50); %Basophils 0.1 % (0.0-1.0); %Monocytes 8.5 % (0.0-10.0); %Neutrophils 86.1 % (42.0-75.0); Mean Corpuscular HGB CONC 33.2 g/dL (32.0-36.0); Mean Corpuscular Hemoglobin 31.9 pg (27.0-31.0); Mean Corpuscular Volume 96.1 fl (78.0-98.0); Mean Platelet Volume 10.6 fL (7.4-10.4); Platelet Count 143 10x3/uL (130-400); RBC Distribution Width 12.9 % (11.5-14.5); Red Blood Cell (RBC) Count 4.08 mill/uL (4.70-6.10); White Blood Cell (WBC) Count 11.1 10x3/uL (4.8-10.8)
[2023-03-29 06:20] LABS: Anion Gap 13 mmol/L (10-20); BUN (Urea Nitrogen) 15 mg/dL (8.4-25.7); Calc. Creatinine Clearance 68 mL/min (70-130); Calcium 8.9 mg/dL (7.8-10.44); Carbon Dioxide 24 mmol/L (23-31); Chloride 105 mmol/L (98-107); Estimated GFR 58; Glucose 148 mg/dL (83-110); Potassium 4.1 mmol/L (3.5-5.1); Sodium 138 mmol/L (136-145)
[2023-03-29] MEDS: Morphine 4 MG/ML VIAL SLOW IVP PRN (06:27)
[2023-03-29] MEDS: Docusate 100 MG CAP PO SCH ×2 (08:19→20:04)
[2023-03-29] MEDS: Atenolol 50 MG TAB PO SCH (08:20)
[2023-03-29] MEDS: Citalopram 20 MG TAB PO SCH (08:20)
[2023-03-29] MEDS: HYDROcodone/Acetaminophen 5/325 mg Tablet PO PRN (10:43)
[2023-03-29] MEDS: Amlodipine 10 MG TAB PO SCH (12:25)
[2023-03-29] MEDS: Ezetimibe 10 MG TAB PO SCH (20:04)
[2023-03-29] MEDS: Atorvastatin Calcium 40 MG TAB PO SCH (20:04)
[2023-03-30] MEDS: HYDROcodone/Acetaminophen 5/325 mg Tablet PO PRN ×2 (01:00→08:58)
[2023-03-30 06:12] LABS: Mean Corpuscular Volume 97.7 fl (78.0-98.0); Mean Platelet Volume 10.6 fL (7.4-10.4); RBC Distribution Width 13.2 % (11.5-14.5)
[2023-03-30 06:14] LABS: Hemoglobin 12.3 g/dL (14.0-18.0); Mean Corpuscular HGB CONC 32.2 g/dL (32.0-36.0); Mean Corpuscular Hemoglobin 31.5 pg (27.0-31.0); Platelet Count 135 10x3/uL (130-400); Red Blood Cell (RBC) Count 3.91 mill/uL (4.70-6.10); White Blood Cell (WBC) Count 7.8 10x3/uL (4.8-10.8)
[2023-03-30 06:36] LABS: Anion Gap 10 mmol/L (10-20); BUN (Urea Nitrogen) 14 mg/dL (8.4-25.7); Calc. Creatinine Clearance 72 mL/min (70-130); Calcium 8.5 mg/dL (7.8-10.44); Carbon Dioxide 26 mmol/L (23-31); Chloride 105 mmol/L (98-107); Estimated GFR 62; Glucose 97 mg/dL (83-110); Potassium 3.8 mmol/L (3.5-5.1); Sodium 137 mmol/L (136-145)
[2023-03-30] MEDS: Citalopram 20 MG TAB PO SCH (08:49)
[2023-03-30] MEDS: Docusate 100 MG CAP PO SCH (08:49)
[2023-03-30] MEDS: Atenolol 50 MG TAB PO SCH (08:56)
[2023-03-30] MEDS: Amlodipine 10 MG TAB PO SCH (11:39)
[2023-03-30 11:53] VITALS: BP 127/74; TEMP 98.2
== END 2023-03-30 14:55 | disposition home or self-care (01) | DRG 658 ==
LOC: SURG A 03-28 05:26
PROVIDERS: ADMIT Urology; ATTEND Urology
PROC: 0TT04ZZ Resection of Right Kidney, Percutaneous Endoscopic Approach (ICD-10-PCS; principal; 2023-03-28)
PROC: 0TB64ZZ Excision of Right Ureter, Percutaneous Endoscopic Approach (ICD-10-PCS; 2023-03-28)
PROC: 3E033XZ Introduction of Vasopressor into Peripheral Vein, Percutaneous Approach (ICD-10-PCS; 2023-03-28)
PROC: 8E0W3CZ Robotic Assisted Procedure of Trunk Region, Percutaneous Approach (ICD-10-PCS; 2023-03-28)
DX: C64.2 Malignant neoplasm of left kidney, except renal pelvis (principal); N28.89 Other specified disorders of kidney and ureter; I73.9 Peripheral vascular disease, unspecified; I25.10 Atherosclerotic heart disease of native coronary artery without angina pectoris; I65.29 Occlusion and stenosis of unspecified carotid artery; I10 Essential (primary) hypertension; F32.A Depression, unspecified; H40.9 Unspecified glaucoma; Z79.82 Long term (current) use of aspirin; Z79.899 Other long term (current) drug therapy
CPT/HCPCS: 36415; 71045; 80048; 85025; 85027; 86850; 86900; 86901; 88307; C1713; C1776; J0690; J1100; J2001; J2250; J2270; J2370; J2405; J2704; J2795; J3010; J3490; J7050; S0020; S0028

== ENCOUNTER 2023-08-19 17:00 | Outpatient (CLI) | payer MEDICARE | END 2023-08-19 17:01 | disposition home or self-care (01) | LOC: SLEEPLAB 17:00 | PROVIDERS: ATTEND Family Medicine | DX: G47.10 Hypersomnia, unspecified (principal); R53.83 Other fatigue; E66.9 Obesity, unspecified; R06.83 Snoring; Z68.29 Body mass index [BMI] 29.0-29.9, adult | CPT/HCPCS: 95810 ==

== ENCOUNTER 2023-10-10 13:40 | Outpatient (CLI) | payer MEDICARE | END 2023-10-10 13:41 | disposition home or self-care (01) | LOC: CT 13:40 | PROVIDERS: ATTEND Urology | DX: C64.1 Malignant neoplasm of right kidney, except renal pelvis (principal); R91.1 Solitary pulmonary nodule; N32.89 Other specified disorders of bladder; Z90.5 Acquired absence of kidney | CPT/HCPCS: 71260; 74177; 82565 ==

== ENCOUNTER 2024-06-30 14:09 | Outpatient (CLI) | payer MEDICARE ==
[~2024-06-30 14:09] MED LIST: Iopamidol 370 76% 100 ML VIAL ONE
== END 2024-06-30 14:10 | disposition home or self-care (01) ==
LOC: CT 14:09
PROVIDERS: ATTEND Thoracic Surgery (Cardiothoracic Vascular Surgery)
DX: I70.213 Atherosclerosis of native arteries of extremities with intermittent claudication, bilateral legs (principal); I65.23 Occlusion and stenosis of bilateral carotid arteries
CPT/HCPCS: 36415; 70498; 75635; 82565; Q9967

== ENCOUNTER 2024-07-17 05:09 | Inpatient (IN) | payer MEDICARE ==
[2024-07-17] MEDS ORDERED: Heparin 5,000 UNITS/ML VIAL ONE (06:38)
[2024-07-17] MEDS ORDERED: EPINEPHrine 1 MG/ML VIAL ONE (06:38)
[2024-07-17] MEDS ORDERED: Bupivacaine PF 0.5% 30 ML VIAL ONE (06:38)
[2024-07-17] MEDS ORDERED: Rocuronium Bromide 10 MG/ML (10ML VIAL) ONE (06:51)
[2024-07-17] MEDS ORDERED: PROPOFOL 20 ML ONE (06:51)
[2024-07-17] MEDS ORDERED: fentaNYL PF 100 MCG/2 ML SYRINGE ONE (06:51)
[2024-07-17] MEDS ORDERED: ePHEDrine Sulfate 50 MG/10 ML VIAL ONE (06:51)
[2024-07-17] MEDS ORDERED: SUGAMMADEX SODIUM 200 MG/2 ML VIAL ONE (06:51)
[2024-07-17] MEDS ORDERED: Lidocaine 1% PF 5 ML VIAL ONE (06:51)
[2024-07-17] MEDS ORDERED: PHENYLEPHRINE-NS 100 MCG/ML 10 ML SYRINGE ONE ×2 (06:52→10:39)
[2024-07-17] MEDS ORDERED: Glycopyrrolate 0.2 MG/ML 5 ML SYRINGE ONE (06:52)
[2024-07-17] MEDS ORDERED: Lidocaine 2% PF 100 mg/5 ml Syringe ONE (06:52)
[2024-07-17] MEDS ORDERED: Phenylephrine 10 MG/ML VIAL ONE (06:52)
[2024-07-17] MEDS ORDERED: Lidocaine 2% PF 5 ML VIAL ONE (06:52)
[2024-07-17] MEDS ORDERED: CEFAZOLIN 1 GM VIAL ONE (06:52)
[2024-07-17] MEDS ORDERED: Lidocaine 1% MPF 2 ML VIAL ONE (07:01)
[2024-07-17] MEDS ORDERED: Ondansetron PF 4 MG/2 ML Vial ONE (07:54)
[2024-07-17] MEDS ORDERED: Norepinephrine 4 MG/4 ML VIAL ONE (07:54)
[2024-07-17] MEDS ORDERED: Dexamethasone 20 MG/5 ML VIAL ONE (07:54)
[2024-07-17] MEDS ORDERED: fentaNYL 50 mcg/mL 1 mL Vial ONE ×2 (09:22→09:36)
[2024-07-17] MEDS ORDERED: Phenylephrine 40 MG/NS 250 ML 250 ML IVPB PRN (09:28)
[2024-07-17] MEDS ORDERED: fentaNYL 50 mcg/mL 1 mL Vial SLOW IVP PRN (09:28)
[2024-07-17] MEDS ORDERED: Nitroglycerin 50 MG/250 ML BOT 250 ML IVPB PRN (09:28)
[2024-07-17] MEDS ORDERED: Acetaminophen 325 MG TAB PO PRN (09:28)
[2024-07-17] MEDS ORDERED: Ipratropium/Albuterol 3 ML NEB NEB PRN (09:28)
[2024-07-17] MEDS ORDERED: hydrALAZINE 20 MG/ML VIAL SLOW IVP PRN (09:28)
[2024-07-17] MEDS ORDERED: Ondansetron PF 4 MG/2 ML Vial IVP PRN (09:28)
[2024-07-17] MEDS: Sodium Chloride 0.9% 1,000 ML IV SCH (10:29)
[2024-07-17 13:17] VITALS: BMI 31.8
[2024-07-17] MEDS: traMADol HCl 50 MG TAB PO PRN (13:27)
[2024-07-17] MEDS: FLU (Fluad Triv) TS24-25 (65UP)/MF59C/PF 45 MCG/0.5 ML Syringe IM ONE (14:17)
[2024-07-17] MEDS: CEFAZOLIN 2 GM in Sodium Chloride 0.9% 100 ML IVPB SCH (14:25)
[2024-07-17] MEDS: Ipratropium/Albuterol 3 ML NEB NEB SCH (14:36)
[2024-07-17] MEDS ORDERED: Non-Formulary Item 1 EACH (Atorvastatin Calcium [Atorvastatin Calcium] 80 MG Tablet) PO SCH (21:00)
[2024-07-17] MEDS ORDERED: Ranolazine ER 500 MG TAB PO SCH (21:00)
[2024-07-17] MEDS ORDERED: Ezetimibe 10 MG TAB PO SCH (21:00)
[2024-07-17] MEDS ORDERED: Non-Formulary Item 1 EACH (Folic Acid [Folic Acid] 0.4 MG Tablet) PO SCH (21:00)
[2024-07-17] MEDS: Ezetimibe 10 MG TAB PO SCH (21:16)
[2024-07-17] MEDS: Atorvastatin Calcium 40 MG TAB PO SCH (21:16)
[2024-07-17] MEDS: Ranolazine ER 500 MG TAB PO SCH (21:17)
[2024-07-17] MEDS: Tamsulosin HCl 0.4 MG CAP PO SCH (21:18)
[2024-07-18 08:19] VITALS: TEMP 98.1
[2024-07-18] MEDS: Folic Acid 1 MG TAB PO SCH (08:56)
[2024-07-18] MEDS: Citalopram 20 MG TAB PO SCH (08:57)
[2024-07-18] MEDS: Aspirin 81 mg Enteric Coated Tablet PO SCH (08:57)
[2024-07-18] MEDS: Clopidogrel Bisulfate 75 MG TAB PO SCH (08:57)
[2024-07-18] MEDS ORDERED: Citalopram 20 MG TAB PO SCH (09:00)
[2024-07-18] MEDS ORDERED: Amlodipine 10 MG TAB PO SCH (09:00)
[2024-07-18] MEDS ORDERED: Non-Formulary Item 1 EACH (Hydrochlorothiazide [Hydrochlorothiazide] 12.5 MG Tablet) PO SCH (09:00)
[2024-07-18] MEDS ORDERED: Clopidogrel Bisulfate 75 MG TAB PO SCH (09:00)
[2024-07-18] MEDS ORDERED: Non-Formulary Item 1 EACH (Losartan Potassium [Cozaar] 100 MG Tablet) PO SCH (09:00)
[2024-07-18] MEDS: Atenolol 50 MG TAB PO SCH (09:08)
[2024-07-18] MEDS: Amlodipine 10 MG TAB PO SCH (09:08)
[2024-07-18] MEDS: Losartan 25 MG TAB PO SCH (09:08)
[2024-07-18] MEDS: Hydrochlorothiazide 25 MG TAB PO SCH (09:08)
== END 2024-07-18 10:45 | disposition home or self-care (01) | DRG 36 ==
LOC: SURG A 05:09 → CCU 13:14 → EDSTATUS 13:14
PROVIDERS: ADMIT Thoracic Surgery (Cardiothoracic Vascular Surgery); ATTEND Thoracic Surgery (Cardiothoracic Vascular Surgery)
PROC: 037L3DZ Dilation of Left Internal Carotid Artery with Intraluminal Device, Percutaneous Approach (ICD-10-PCS; principal; 2024-07-17)
DX: I65.22 Occlusion and stenosis of left carotid artery (principal); R00.1 Bradycardia, unspecified; Z95.5 Presence of coronary angioplasty implant and graft; Z79.02 Long term (current) use of antithrombotics/antiplatelets; Z79.899 Other long term (current) drug therapy; Z79.82 Long term (current) use of aspirin; Z86.718 Personal history of other venous thrombosis and embolism; M19.90 Unspecified osteoarthritis, unspecified site; F32.A Depression, unspecified; I25.10 Atherosclerotic heart disease of native coronary artery without angina pectoris; I10 Essential (primary) hypertension; I73.9 Peripheral vascular disease, unspecified; H40.9 Unspecified glaucoma; D64.9 Anemia, unspecified; E78.5 Hyperlipidemia, unspecified; Z87.891 Personal history of nicotine dependence
CPT/HCPCS: 94640; C1725; C1769; C1876; C1884; J0171; J0665; J0690; J1100; J1642; J1644; J2003; J2371; J2405; J2704; J3010; J7620

== ENCOUNTER 2024-07-26 15:13 | Observation (INO) | payer MEDICARE ==
[~2024-07-26 15:13] MED LIST changes: -Iopamidol 370 76% 100 ML VIAL ONE; +Iopamidol-370 76% 500 ML MDV (1 ML CHARGE) ONE
[2024-07-26 15:41] LABS: #Basophils Less than 0.03 10x3/uL (0.0-0.2); %Basophils 0.3 % (0.0-1.0); %Eosinophils 3.6 % (0.0-10.0); %Lymphocytes 22.4 % (21.0-51.0); %Monocytes 11.1 % (0.0-10.0); %Neutrophils 62.3 % (42.0-75.0); Hematocrit 38.3 % (42.0-52.0); Hemoglobin 12.6 g/dL (14.0-18.0); Mean Corpuscular HGB CONC 32.9 g/dL (32.0-36.0); Mean Corpuscular Hemoglobin 30.2 pg (27.0-31.0); Mean Corpuscular Volume 91.8 fL (78.0-98.0); Platelet Count 184 10x3/uL (130-400); RBC Distribution Width 12.4 % (11.5-14.5); Red Blood Cell (RBC) Count 4.17 mill/uL (4.70-6.10)
[2024-07-26 16:00] LABS: ALT (SGPT) 18 U/L (8-55); AST (SGOT) 18 U/L (5-34); Albumin 3.3 g/dL (3.4-4.8); Alkaline Phosphatase 61 U/L (40-110); Anion Gap 13 mmol/L (10-20); BUN (Urea Nitrogen) 17 mg/dL (8.4-25.7); Bilirubin, Total 0.6 mg/dL (0.2-1.2); Calc. Creatinine Clearance 0 mL/min (70-130); Calcium 8.9 mg/dL (7.8-10.44); Carbon Dioxide 24 mmol/L (23-31); Chloride 107 mmol/L (98-107); Estimated GFR 74; Globulin 3.6 g/dL (2.4-3.5); Glucose 117 mg/dL (83-110); Potassium 3.3 mmol/L (3.5-5.1); Protein, Total 6.9 g/dL (5.8-8.1); Sodium 141 mmol/L (136-145)
[2024-07-26 16:04] LABS: Troponin I 0.067 ng/mL (< 0.028)
[2024-07-26] MEDS ORDERED: Nitroglycerin 2% Ointment 1 INCH/1 GM Packet ONE (16:37)
[2024-07-26] MEDS ORDERED: Aspirin Chewable 81 MG TAB ONE (16:37)
[2024-07-26] MEDS ORDERED: Enoxaparin 100 MG (1 mL) SYRINGE ONE (19:16)
[2024-07-26] MEDS ORDERED: Enoxaparin 80 MG (0.8 mL) SYRINGE ONE (19:16)
[2024-07-26] MEDS ORDERED: Acetaminophen 325 MG TAB PO PRN (19:30)
[2024-07-26] MEDS ORDERED: Ondansetron PF 4 MG/2 ML Vial IVP PRN (19:32)
[2024-07-26] MEDS ORDERED: traMADol HCl 50 MG TAB PO PRN (19:32)
[2024-07-26] MEDS ORDERED: Morphine 2 MG/ML VIAL SLOW IVP PRN (19:36)
[2024-07-26] MEDS ORDERED: Enoxaparin 30 MG (0.3 mL) SYRINGE ONE (19:42)
[2024-07-26 20:27] LABS: Troponin I 0.089 ng/mL (< 0.028)
[2024-07-26] MEDS ORDERED: Ketorolac Tromethamine 30 MG (1 mL) VIAL ONE (20:35)
[2024-07-26 21:10] VITALS: BMI 32.3
[2024-07-26] MEDS: Pantoprazole DR 40 MG TAB PO SCH (21:56)
[2024-07-26] MEDS: Ranolazine ER 500 MG TAB PO SCH (21:56)
[2024-07-26] MEDS: Potassium Chloride 20 MEQ TAB PO SCH (21:56)
[2024-07-26] MEDS: Ezetimibe 10 MG TAB PO SCH (21:56)
[2024-07-26] MEDS: Atorvastatin Calcium 40 MG TAB PO SCH (21:56)
[2024-07-27 00:44] LABS: Troponin I 0.069 ng/mL (< 0.028)
[2024-07-27 05:42] LABS: #Basophils 0.03 10x3/uL (0.0-0.2); %Basophils 0.6 % (0.0-1.0); %Eosinophils 6.3 % (0.0-10.0); %Lymphocytes 24.5 % (21.0-51.0); %Monocytes 11.7 % (0.0-10.0); %Neutrophils 56.5 % (42.0-75.0); Hematocrit 36.6 % (42.0-52.0); Hemoglobin 11.9 g/dL (14.0-18.0); Mean Corpuscular HGB CONC 32.5 g/dL (32.0-36.0); Mean Corpuscular Hemoglobin 30.4 pg (27.0-31.0); Mean Corpuscular Volume 93.6 fL (78.0-98.0); Mean Platelet Volume 10.2 fL (7.4-10.4); Platelet Count 162 10x3/uL (130-400); RBC Distribution Width 12.5 % (11.5-14.5); Red Blood Cell (RBC) Count 3.91 mill/uL (4.70-6.10)
[2024-07-27 06:07] LABS: Anion Gap 11 mmol/L (10-20); BUN (Urea Nitrogen) 12 mg/dL (8.4-25.7); Calc. Creatinine Clearance 88 mL/min (70-130); Calcium 8.4 mg/dL (7.8-10.44); Carbon Dioxide 23 mmol/L (23-31); Chloride 110 mmol/L (98-107); Estimated GFR 68; Glucose 127 mg/dL (83-110); Potassium 3.8 mmol/L (3.5-5.1); Sodium 140 mmol/L (136-145)
[2024-07-27] MEDS: Pantoprazole DR 40 MG TAB PO SCH (10:40)
[2024-07-27] MEDS: Clopidogrel Bisulfate 75 MG TAB PO SCH (10:40)
[2024-07-27] MEDS: Atenolol 25 MG TAB PO SCH (10:40)
[2024-07-27] MEDS: Citalopram 20 MG TAB PO SCH (10:40)
[2024-07-27] MEDS: Enoxaparin 100 MG (1 mL) SYRINGE SC SCH (10:41)
[2024-07-27] MEDS: Tamsulosin HCl 0.4 MG CAP PO SCH (10:41)
[2024-07-27] MEDS: Hydrochlorothiazide 25 MG TAB PO SCH (10:41)
[2024-07-27] MEDS: Potassium Chloride 20 MEQ TAB PO ONE (11:14)
[2024-07-27] MEDS: Isosorbide Mononitrate 30 MG ER.TAB PO SCH (13:14)
[2024-07-27] MEDS: Losartan 25 MG TAB PO SCH (13:15)
[2024-07-27] MEDS: Amlodipine 10 MG TAB PO SCH (13:15)
[2024-07-27] MEDS: Aspirin 81 mg Enteric Coated Tablet PO SCH (13:15)
[2024-07-27] MEDS: Ketorolac Tromethamine 30 MG (1 mL) VIAL IVP SCH (14:21)
[2024-07-27] MEDS: Folic Acid 1 MG TAB PO SCH (20:53)
[2024-07-27] MEDS: Enoxaparin 120 MG/0.8 ML SYRINGE SC SCH (20:54)
[2024-07-27] MEDS: Benzonatate 100 MG CAP PO PRN (20:55)
[2024-07-28] MEDS: NIFEdipine XL 60 MG ER.TAB PO SCH (09:14)
[2024-07-28] MEDS: Isosorbide Mononitrate 30 MG ER.TAB PO SCH (09:15)
[2024-07-28 12:06] VITALS: BP 148/76; TEMP 98.4
[2024-07-29] MEDS ORDERED: NIFEdipine XL 60 MG ER.TAB PO SCH (09:00)
== END 2024-07-28 12:10 | disposition home or self-care (01) ==
LOC: ERS 15:13 → OBS 19:30
PROVIDERS: ADMIT Internal Medicine; ATTEND Internal Medicine
DX: R07.89 Other chest pain (principal); I65.22 Occlusion and stenosis of left carotid artery; I25.110 Atherosclerotic heart disease of native coronary artery with unstable angina pectoris; I73.9 Peripheral vascular disease, unspecified; I10 Essential (primary) hypertension; E78.5 Hyperlipidemia, unspecified; E87.6 Hypokalemia; E66.9 Obesity, unspecified; F32.A Depression, unspecified; Z68.32 Body mass index [BMI] 32.0-32.9, adult; Z98.49 Cataract extraction status, unspecified eye; Z87.891 Personal history of nicotine dependence; Z95.5 Presence of coronary angioplasty implant and graft; Z98.890 Other specified postprocedural states; Z88.5 Allergy status to narcotic agent; Z79.02 Long term (current) use of antithrombotics/antiplatelets; Z79.82 Long term (current) use of aspirin; Z79.899 Other long term (current) drug therapy
CPT/HCPCS: 70498; 71045; 80048; 80053; 83880; 84484 ×2; 85025 ×2; 93005; 96372 ×2; 96374; 96376; 99285; G0378 ×4; J1650 ×4; J1885 ×2; Q9967; 36415

== ENCOUNTER 2024-08-14 11:33 | Outpatient (CLI) | payer MEDICARE ==
[2024-08-14 13:59] LABS: #Basophils 0.05 10x3/uL (0.0-0.2); %Basophils 0.6 % (0.0-1.0); %Lymphocytes 16.2 % (21.0-51.0); %Monocytes 8.4 % (0.0-10.0); %Neutrophils 71.5 % (42.0-75.0); Hematocrit 39.1 % (42.0-52.0); Hemoglobin 13.4 g/dL (14.0-18.0); Mean Corpuscular HGB CONC 34.3 g/dL (32.0-36.0); Mean Corpuscular Volume 90.5 fL (78.0-98.0); Mean Platelet Volume 10.2 fL (7.4-10.4); Platelet Count 281 10x3/uL (130-400); RBC Distribution Width 12.2 % (11.5-14.5); Red Blood Cell (RBC) Count 4.32 mill/uL (4.70-6.10)
[2024-08-14 14:11] LABS: Anion Gap 13 mmol/L (10-20); BUN (Urea Nitrogen) 23 mg/dL (8.4-25.7); Calc. Creatinine Clearance 0 mL/min (70-130); Carbon Dioxide 23 mmol/L (23-31); Chloride 105 mmol/L (98-107); Estimated GFR 45; Glucose 139 mg/dL (83-110); Potassium 3.9 mmol/L (3.5-5.1); Sodium 137 mmol/L (136-145)
== END 2024-08-14 11:34 | disposition home or self-care (01) ==
LOC: LABBT 11:33
PROVIDERS: ATTEND Thoracic Surgery (Cardiothoracic Vascular Surgery)
DX: Z01.818 Encounter for other preprocedural examination (principal); I65.21 Occlusion and stenosis of right carotid artery
CPT/HCPCS: 80048; 85025; 93005; 93010

== ENCOUNTER 2024-08-14 12:30 | Inpatient (IN) | payer MEDICARE ==
[2024-08-19] MEDS ORDERED: Lidocaine 1% MPF 2 ML VIAL ONE (08:20)
[2024-08-19] MEDS ORDERED: Ondansetron PF 4 MG/2 ML Vial ONE (08:31)
[2024-08-19] MEDS ORDERED: Dexamethasone 20 MG/5 ML VIAL ONE (08:31)
[2024-08-19] MEDS ORDERED: Heparin 10,000 UNITS/ 10 ML VIAL ONE (08:31)
[2024-08-19] MEDS ORDERED: Rocuronium Bromide 10 MG/ML (10ML VIAL) ONE ×2 (08:31→09:39)
[2024-08-19] MEDS ORDERED: fentaNYL PF 100 MCG/2 ML SYRINGE ONE (08:31)
[2024-08-19] MEDS ORDERED: PROPOFOL 20 ML ONE (08:31)
[2024-08-19] MEDS ORDERED: Protamine Sulfate 50 MG/5 ML VIAL ONE (08:35)
[2024-08-19] MEDS ORDERED: Heparin 5,000 UNITS/ML VIAL ONE (08:35)
[2024-08-19] MEDS ORDERED: Lidocaine 2% 6 ML (Jelly) SYR ONE (08:42)
[2024-08-19] MEDS ORDERED: CEFAZOLIN 2 GM VIAL ONE (08:42)
[2024-08-19] MEDS ORDERED: Albuterol HFA (OR) 200 PUFF INH ONE ×2 (09:15→09:16)
[2024-08-19] MEDS ORDERED: Esmolol 100 MG/10 ML VIAL ONE (09:15)
[2024-08-19] MEDS ORDERED: ePHEDrine Sulfate 50 MG/10 ML VIAL ONE (10:35)
[2024-08-19] MEDS ORDERED: Glycopyrrolate 0.2 MG/ML 5 ML SYRINGE ONE (10:36)
[2024-08-19] MEDS ORDERED: PHENYLEPHRINE-NS 100 MCG/ML 10 ML SYRINGE ONE (10:37)
[2024-08-19] MEDS ORDERED: SUGAMMADEX SODIUM 200 MG/2 ML VIAL ONE (10:48)
[2024-08-19] MEDS ORDERED: fentaNYL 50 mcg/mL 1 mL Vial ONE ×4 (11:23→14:09)
[2024-08-19] MEDS ORDERED: fentaNYL 50 mcg/mL 1 mL Vial SLOW IVP PRN ×2 (12:06)
[2024-08-19] MEDS ORDERED: Ondansetron PF 4 MG/2 ML Vial IVP PRN (12:06)
[2024-08-19] MEDS ORDERED: traMADol HCl 50 MG TAB PO PRN ×2 (12:06)
[2024-08-19] MEDS ORDERED: Nitroglycerin 0.4 MG TAB (25 Tab Bottle) SL PRN (12:06)
[2024-08-19] MEDS ORDERED: Nitroglycerin 50 MG/250 ML BOT 250 ML IVPB PRN (12:06)
[2024-08-19] MEDS ORDERED: Ipratropium/Albuterol 3 ML NEB NEB PRN (12:06)
[2024-08-19] MEDS ORDERED: Acetaminophen 325 MG TAB PO PRN ×2 (12:06)
[2024-08-19] MEDS ORDERED: Phenylephrine 40 MG/NS 250 ML 250 ML IVPB PRN (12:06)
[2024-08-19] MEDS ORDERED: Albuterol 200 PUFF INH INH PRN (12:34)
[2024-08-19] MEDS ORDERED: hydrALAZINE 20 MG/ML VIAL ONE (14:09)
[2024-08-19] MEDS: Ipratropium/Albuterol 3 ML NEB NEB SCH (16:57)
[2024-08-19] MEDS: hydrALAZINE 20 MG/ML VIAL SLOW IVP PRN (16:59)
[2024-08-19] MEDS: Sodium Chloride 0.9% 1,000 ML IV SCH (17:00)
[2024-08-19] MEDS: CEFAZOLIN 2 GM in Sodium Chloride 0.9% 100 ML IVPB SCH (17:03)
[2024-08-19] MEDS: HYDROcodone/Acetaminophen 7.5/325 mg Tablet PO PRN (18:17)
[2024-08-19] MEDS: Tamsulosin HCl 0.4 MG CAP PO SCH (20:27)
[2024-08-19] MEDS: Atorvastatin Calcium 40 MG TAB PO SCH (20:27)
[2024-08-19] MEDS: Ranolazine ER 500 MG TAB PO SCH (20:28)
[2024-08-19] MEDS: Losartan 25 MG TAB PO SCH (20:28)
[2024-08-19] MEDS: Ezetimibe 10 MG TAB PO SCH (20:28)
[2024-08-19] MEDS: Folic Acid 1 MG TAB PO SCH (20:28)
[2024-08-20 00:49] VITALS: TEMP 98.1
[2024-08-20 05:36] VITALS: BMI 31.6
[2024-08-20] MEDS: Citalopram 20 MG TAB PO SCH (08:28)
[2024-08-20] MEDS: Atenolol 50 MG TAB PO SCH (08:28)
[2024-08-20] MEDS: Hydrochlorothiazide 25 MG TAB PO SCH (08:28)
[2024-08-20 08:37] VITALS: BP 136/68
[2024-08-20] MEDS ORDERED: NIFEdipine XL 60 MG ER.TAB PO SCH (12:00)
[2024-08-20] MEDS ORDERED: Isosorbide Mononitrate 30 MG ER.TAB PO SCH (12:00)
[2024-08-20] MEDS ORDERED: Clopidogrel Bisulfate 75 MG TAB PO SCH (12:00)
[2024-08-20] MEDS ORDERED: Aspirin 81 mg Enteric Coated Tablet PO SCH (12:00)
== END 2024-08-20 09:40 | disposition home or self-care (01) | DRG 39 ==
LOC: SURG A 08-19 06:43 → CCU 08-19 16:32
PROVIDERS: ADMIT Thoracic Surgery (Cardiothoracic Vascular Surgery); ATTEND Thoracic Surgery (Cardiothoracic Vascular Surgery)
PROC: 03CK0ZZ Extirpation of Matter from Right Internal Carotid Artery, Open Approach (ICD-10-PCS; principal; 2024-08-19)
PROC: 03UK0JZ Supplement Right Internal Carotid Artery with Synthetic Substitute, Open Approach (ICD-10-PCS; 2024-08-19)
DX: I65.21 Occlusion and stenosis of right carotid artery (principal); I25.10 Atherosclerotic heart disease of native coronary artery without angina pectoris; E78.5 Hyperlipidemia, unspecified; D64.9 Anemia, unspecified; E11.9 Type 2 diabetes mellitus without complications; F32.A Depression, unspecified; N40.0 Benign prostatic hyperplasia without lower urinary tract symptoms; I10 Essential (primary) hypertension; Z95.5 Presence of coronary angioplasty implant and graft; I25.2 Old myocardial infarction; Z86.718 Personal history of other venous thrombosis and embolism; Z87.891 Personal history of nicotine dependence; Z85.528 Personal history of other malignant neoplasm of kidney; Z79.02 Long term (current) use of antithrombotics/antiplatelets; R58 Hemorrhage, not elsewhere classified
CPT/HCPCS: 94640; C1768; J0360; J1100; J1642; J1644; J2405; J2704; J2720; J3010; J7030; J7620

== ENCOUNTER 2025-07-23 09:31 | Outpatient (CLI) | payer MEDICARE | END 2025-07-23 09:32 | disposition home or self-care (01) | LOC: MRI 09:31 | PROVIDERS: ATTEND Family Medicine | DX: M54.42 Lumbago with sciatica, left side (principal); R29.898 Other symptoms and signs involving the musculoskeletal system; M51.369 Other intervertebral disc degeneration, lumbar region without mention of lumbar back pain or lower extremity pain; M47.816 Spondylosis without myelopathy or radiculopathy, lumbar region; M48.061 Spinal stenosis, lumbar region without neurogenic claudication; M51.26 Other intervertebral disc displacement, lumbar region | CPT/HCPCS: 72148 ==